=== PATIENT | male | born 1935 | race Caucasian/White ===

== ENCOUNTER → 2021-10-28 | Outpatient (CLI) | payer MEDICARE, BC | LOC: HEART 5 13:27 | DX: R06.00 Dyspnea, unspecified (principal) | CPT/HCPCS: 94060; 94729 ==

== ENCOUNTER → 2021-11-11 | Outpatient (CLI) | payer MEDICARE, BC | LOC: CT 10:38 | DX: R09.02 Hypoxemia (principal); J98.2 Interstitial emphysema | CPT/HCPCS: 71250 ==